=== PATIENT | female | born 1925 | race Caucasian/White ===

== ENCOUNTER 2016-10-12 06:07 | Emergency (ER) | payer MEDICARE, OTHER ==
[~2016-10-12 06:07] MED LIST: ACETAMINOPHEN500 MG; ACIPHEX20 MG; ACIPHEX20 MG PO; ADULT LOW DOSE81 MG PO; ADVAIR 2501 DISK W/D; ADVAIR 2501 DISK W/D IH; ADVAIR 25028 BLISTER INH; ADVAIR 5001 DISK W/D IH; ADVAIR 50028 BLISTE1 INH; ADVANCED PAIN200 MG PO; AGGRENOX 25 MG-1 CAP PO; AGGRENOX1 CAP PO; ALBUTEROL SULF8.5 G1 IH; ALBUTEROL17 GM; ALBUTEROL17 GM INH; ALIGN4 MG; AMBIEN CR12.5 MG/BO; AMBIEN10 MG; AMBIEN10 MG PO; AMBIEN5 M1 PO; AMITRIPTYLINE H25 M1 PO; AMITRIPTYLINE H25 MG PO; ASPIRIN; ATIVAN0.5 MG PO; BONIVA2.5 MG PO; CALCIUM 600 W/V1 TAB; CALCIUM500 M1 PO; CALCIUM500 M3 PO; CALCIUM500 MG PO; CALCIUM600 MG PO; CEFDINIR300 M1 PO; CEPACOL SORE T1 EAC1 MM; CHERATUSSIN AC118 ML PO; CITRACAL; CODEINE; CODEINE-GUAIFE120 M1 PO; CORTISONE14 GM TP; CULTURELLE1 CA1 NG; CULTURELLE1 CA1 PO; CULTURELLE1 EAC1 PO; DELTASONE10 MG PO; DEXILANT30 M1 PO; DEXILANT60 M1 PO; FORTEO2.4 ML SC; FORTEO2.4 ML SQ; GUAIFENESIN-COD10 ML PO; GUAIFENESIN/CODEINE PO; HYDROCORTISONE; IMDUR30 MG PO; IMODIUM2 MG PO; ISORDIL30 MG PO; ISOSORBIDE MONO30 MG PO; K-DUR20 ME1 PO; K-DUR20 MEQ PO; KEFLEX500 M1 PO; LAMISIL250 MG PO; LEVAQUIN500 MG PO; LOMOTIL 2.5-0.1 EACH; LOMOTIL 2.5-0.1 EACH PO; MELATONIN; MELATONIN1 M1 PO; MELATONIN1 MG; MELATONIN1 MG PO; METAMUCIL POWD288 GM PO; METAMUCIL0.52 G PO; METAMUCIL1 EACH PO; MONTELUKAST SOD10 M2 PO; MONTELUKAST SOD10 MG PO; MOTRIN200 MG/TAB PO; MUCINEX1200 MG PO; MUCINEX600 MG PO; MULTI FOR HER400 MCG PO; MULTI-VITAMIN1 EAC1 PO; MULTIPLE VITAMI1 TAB PO; MULTIVITAMIN1 CAP; MULTIVITAMIN1 TAB PO; MULTIVITAMINS1 EAC6 PO; NITROQUICK0.4 MG SL; NORCO 5-325 TA1 EACH PO; NORCO 5/325 TAB1 TAB PO; NORVASC5 M1 PO; NORVASC5 MG; NORVASC5 MG PO; OMNICEF300 MG PO; PLAQUENIL200 M1 PO; PLAQUENIL200 MG PO; PLAVIX75 MG; PLAVIX75 MG PO; POLYETHYLENE GL17 G1 PO; POTASSIUM CHLO10 ME1 PO; POTASSIUM CHLO20 MEQ; POTASSIUM CHLO20 MEQ PO; POTASSIUM CHLORIDE; PREDNISOLONE5 MG PO; PREDNISONE10 MG PO; PREDNISONE20 M1 PO; PREDNISONE20 MG PO; PREDNISONE5 MG PO; PREMARIN0.625 MG; PRILOSEC20 M1 PO; PROVENTIL17 GM IH; QUESTRAN LIGH4 G/PKT PO; RED YEAST RICE600 MG; ROBITUSSIN DM PO; SIMVASTATIN20 MG PO; SINGULAIR10 MG; SINGULAIR10 MG PO; TRIAMCINOLONE A15 GM TOP; TRIAMTERENE-HCT1 CA; TRIAMTERENE-HCT1 TAB; TUMS; TYLENOL325 MG PO; TYLENOL650 MG PO; ULTRAM ER100 MG PO; VANCOMYCIN HCL125 MG PO; VANCOMYCIN50 MG/1 ML PO; VENTOLIN HFA18 G1 IH; VENTOLIN HFA18 G1 INH; VENTOLIN HFA18 G2 IH; VENTOLIN HFA18 G2 INH; VIACTIV PO; VIBERZI100 MG PO; VIBRAMYCIN100 M1 PO; VITAMIN D1000 UNIT PO; VITAMIN D250000 UNI1 PO; VITAMIN D50000 UNI2 PO; VITAMIN D50000 UNIT PO; WELCHOL625 M1 PO; WELLBUTRIN SR100 M2 PO; ZETIA10 M1 PO; ZETIA10 MG PO; ZITHROMAX250 MG PO; ZOCOR20 MG PO; ZOLPIDEM TARTRA10 MG PO
[2016-10-12] MEDS ORDERED: CALCIUM PO (06:54)
[2016-10-12] MEDS ORDERED: CHOLESTYRAMINE P4 GM PO (06:54)
[2016-10-12] MEDS ORDERED: CITRUCEL POWDE850 GM PO (06:54)
[2016-10-12] MEDS ORDERED: CULTURELLE1 EAC1 PO (06:55)
[2016-10-12] MEDS ORDERED: MIRALAX17 G2 PO (06:55)
[2016-10-12] MEDS ORDERED: PROLIA60 MG/1 M1 SC (06:56)
[2016-10-12] MEDS ORDERED: MUCINEX600 M1 PO (06:56)
[2016-10-12] MEDS ORDERED: LEVSIN-SL0.125 MG SL (06:57)
[2016-12-09] MEDS ORDERED: GUAIFENESIN-COD10 ML PO (07:20)
[2016-12-09] MEDS ORDERED: CALCIUM600 M1 PO (07:24)
[2016-12-09] MEDS ORDERED: CENTRUM SILVER1 EAC6 PO (07:26)
[2017-01-19] MEDS ORDERED: VENTOLIN HFA18 G2 PO (19:44)
[2017-01-20] MEDS ORDERED: MILK OF MAGNESIA PO (15:20)
[2017-01-20] MEDS ORDERED: METAMUCIL SUGA283 GM PO (15:21)
[2017-01-20] MEDS ORDERED: TYLENOL325 M2 PO (15:27)
[2017-02-10] MEDS ORDERED: VITAMIN D250000 UNI1 PO (13:39)
[2017-02-10] MEDS ORDERED: PLAQUENIL200 M1 PO (13:40)
[2017-02-10] MEDS ORDERED: DEXILANT60 M1 PO (13:41)
[2017-02-10] MEDS ORDERED: ALCLOMETASONE D PO (13:44)
[2017-02-10] MEDS ORDERED: NORVASC2.5 M1 PO (15:18)
== END 2016-10-12 07:59 ==
LOC: EDMED 06:07
DX: S22.32XA Fracture of one rib, left side, initial encounter for closed fracture (principal); S79.912A Unspecified injury of left hip, initial encounter; W01.198A Fall on same level from slipping, tripping and stumbling with subsequent striking against other object, initial encounter; J45.909 Unspecified asthma, uncomplicated; J44.9 Chronic obstructive pulmonary disease, unspecified; Z86.73 Personal history of transient ischemic attack (TIA), and cerebral infarction without residual deficits; Z79.51 Long term (current) use of inhaled steroids; Z79.899 Other long term (current) drug therapy